=== PATIENT | male | born 1980 | race African-American/Black ===

== ENCOUNTER 2018-05-30 18:39 | Emergency (ER) | payer SELFPAY ==
[~2018-05-30] VITALS: Ht 175.3 cm; Wt 69.4 kg
[2018-05-30 18:48] VITALS: BP 160/110
== END 2018-05-30 22:13 | disposition home or self-care (01) ==
LOC: EDBD 18:39 → ER 18:45
DX: M25.562 Pain in left knee (principal); M62.838 Other muscle spasm; R07.81 Pleurodynia; M54.5 Low back pain; R51 Headache; Z88.0 Allergy status to penicillin; V43.52XA Car driver injured in collision with other type car in traffic accident, initial encounter; Y93.89 Activity, other specified; Y99.8 Other external cause status; Y92.410 Unspecified street and highway as the place of occurrence of the external cause
CPT/HCPCS: 70450; 71045; 72125; 72131; 73562

== ENCOUNTER 2024-07-31 22:02 | Emergency (ER) | payer SELFPAY ==
[~2024-07-31] VITALS: Ht 175.3 cm; Wt 75.8 kg
[2024-07-31] MEDS ORDERED: IBUP-1455 PO (22:22)
[2024-07-31] MEDS ORDERED: CYCL-837 PO (22:22)
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
[2024-08-01] MEDS: KETOROLAC TROMETH 30 MG/ML 1ML VIAL IM ONE (00:57)
[2024-08-01] MEDS: methylPREDNISolone SOD SUCC 125 MG/2 ML VL IM ONE (00:57)
[2024-08-01 01:01] VITALS: BP 152/99; PULSE 88; RESP 16; TEMP 98.3; O2SAT 96
== END 2024-08-01 01:04 | disposition home or self-care (01) ==
LOC: ER 22:02
DX: S16.1XXA Strain of muscle, fascia and tendon at neck level, initial encounter (principal); M54.6 Pain in thoracic spine; Z88.0 Allergy status to penicillin; V89.2XXA Person injured in unspecified motor-vehicle accident, traffic, initial encounter; Y93.I9 Activity, other involving external motion; Y92.488 Other paved roadways as the place of occurrence of the external cause; Y99.8 Other external cause status
CPT/HCPCS: 96372; 99284; J1885; J2919